=== PATIENT | male | born 1950 | race Caucasian/White ===

== ENCOUNTER 2023-02-25 20:29 | Emergency (ER) | payer OTHER ==
[~2023-02-25] VITALS: Ht 172.7 cm; Wt 78.0 kg
== END 2023-02-25 22:30 | disposition home or self-care (01) ==
LOC: ER 20:29
DX: R07.81 Pleurodynia (principal); S50.811A Abrasion of right forearm, initial encounter; W17.81XA Fall down embankment (hill), initial encounter
CPT/HCPCS: 71101

== ENCOUNTER 2025-09-22 09:02 | Day surgery (SDC) | payer OTHER ==
[2025-09-22] VITALS (13 sets, daily range): BP systolic 98–150; BP diastolic 51–71
[~2025-09-22] VITALS: Ht 170.2 cm; Wt 81.4 kg
[~2025-09-22 09:02] MED LIST: Celexa20 MG PO; Crestor40 MG PO; LISI20 PO; PIOG15 PO; PROP10 PO; SITA100T2 PO; SYNJARDY 12.5-1 EAC3 PO; VITAMIN D31250 MC2 PO
[2025-09-22] MEDS ORDERED: Ropivacaine 0.5% HCl/Pf 123.125 MG,EPINEPHrine HCL 0.25 MG,Ketorolac Tromethamine 15 MG... INFIL SCH (09:40)
[2025-09-22] MEDS ORDERED: Chlorhexidine Mouth Care 15 ML UDC MT SCH (09:40)
[2025-09-22] MEDS ORDERED: Tranexamic Acid 100 ML IV SCH (09:40)
[2025-09-22] MEDS ORDERED: CeFAZolin Sodium 2,000 MG in NS 100 ML IV SCH ×2 (09:40→21:00)
--- NOTE | 2025-09-22 10:52 | NUR ---
Ambulatory in Day Surgery. Pre-Op teaching done. Pt verbalizes understanding. History, Chart, Medications and Allergies reviewed before start of procedure. Patient States Post-Procedure ride home has been arranged. Patient confirms NPO status and agrees with scheduled surgery.
[2025-09-22] MEDS ORDERED: FentaNYL Citrate 50 MCG/ML 2 ML Injection IV PRN ×2 (11:05→11:10)
[2025-09-22] MEDS ORDERED: ePHEDrine Sulfate 50 MG/ML 1ML Injection IV PRN (11:05)
[2025-09-22] MEDS ORDERED: HydrALAZINE HCl 20 MG / ML 1ML Vial IV PRN (11:10)
[2025-09-22] MEDS ORDERED: HYDROmorphone HCl/Pf 1MG SYR IV PRN ×3 (11:10→12:30)
[2025-09-22] MEDS ORDERED: Ondansetron HCl 2 MG / ML 2ML Vial IV PRN ×2 (11:10→12:25)
[2025-09-22] MEDS ORDERED: Midazolam HCl 1MG / ML 2ML Vial ONE (11:57)
[2025-09-22] MEDS ORDERED: FentaNYL Citrate 50 MCG/ML 2 ML Injection ONE (11:57)
[2025-09-22] MEDS ORDERED: Metoclopramide HCl 5MG / ML 2ML Vial IV PRN (12:25)
[2025-09-22] MEDS ORDERED: FLU VACC TS2025(65UP)/MF59C/PF 45 MCG/0.5 ML SYRINGE IM SCH (12:30)
[2025-09-22] MEDS ORDERED: Magnesium Hydroxide Conc 10 ML UDC PO PRN (12:35)
[2025-09-22] MEDS ORDERED: Ondansetron HCl 2 MG / ML 2ML Vial ONE (13:21)
[2025-09-22] MEDS ORDERED: Dexamethasone Sod Phos 10 MG/ML 1ML VIAL ONE (13:21)
[2025-09-22] MEDS ORDERED: ASPI81CH PO (16:29)
[2025-09-22] MEDS ORDERED: ACET500 PO (16:29)
[2025-09-22] MEDS ORDERED: Insulin Regular 100 UNIT/ML 10ML Vial SC SCH (16:30)
[2025-09-22] MEDS ORDERED: JARDIANCE25 MG PO (16:31)
[2025-09-22] MEDS ORDERED: DOCU100 PO (16:31)
[2025-09-22] MEDS ORDERED: OXAYDO5 M3 PO (16:32)
[2025-09-22] MEDS ORDERED: Ketorolac Tromethamine 15mg Vial IV SCH (18:00)
--- NOTE | 2025-09-22 18:25 | NUR ---
SHIFT SUMMARY PT HAS YET TO VOID. BLADDER SCANNED WITH MORE THAN 728 CC AND PT REFUSED THE RECOMMENDED STRAIGHT CATH. PT STATES "I HAVE A VERY LARGE BLADDER AND WOULD LIKE TO GIVE IT MORE TIME". PT AMBULATING THE HALLWAYS WITH STAFF NOW. BLOOD SUGAR TREATED ORDERED. PT STATES MINIMAL PAIN SINCE PROCEDURE. CURRENTLY DENIES KNEE PAIN. VS REVIEWED. FAMILY AT BEDSIDE.
[2025-09-22] MEDS ORDERED: Lidocaine 2% Jelly Uro-Jet UR PRN (20:15)
--- NOTE | 2025-09-23 04:33 | NUR ---
SHIFT SUMMARY PT WAS ALERT AND FULLY ORIENTED ON ASSESSMENT. CIRCULATION/ SENSATION INTACT TO BLE. PAIN WELL MANAGED. DENIES SOB, CHEST PAIN, NAUSEA. INCISION DRESSING C/D/I. PT AMBULATING WELL. PT RETAINING URINE AT START OF SHIFT. BLADDER SCANS REVEALING OVER 1000ML. PT INITIALLY REFUSING CATHETER. PT ABLE TO VOID SEVERAL TIMES TOTALLING OVER 800 ML, BUT UNFORTUNATELY D/T CONTINUED URINE PRODUCTION SECONDARY TO EXCESSIVE PO FLUID INTAKE HIS RETAINED VOLUME REMAINED OVER 1000ML. PT DID EVENTUALLY AGREE TO STRAIGHT CATHETER. 1175ML REMOVED, 344 REMAINED IN FOLLOW UP BLADDER SCAN. PT STATES THAT D/T CAREER HE FEELS HE MAY HAVE A STRETCHED BLADDER FROM FREQUENTLY HOLDING URINE FOR PROLONGED PERIODS. NO OTHER EVENTS OR CHANGES THIS SHIFT.
[2025-09-23 04:34] VITALS: BP 144/63
[2025-09-23 04:46] LABS: BASOPHILS ABSOLUTE AUTO 0.01 K/mm3 (0.00-0.23); BASOPHILS PERCENT AUTO 0 % (0-2); EOSINOPHILS ABSOLUTE AUTO 0.00 K/mm3 (0.00-0.68); EOSINOPHILS PERCENT AUTO 0 % (0-6); Hematocrit 32.0 % (37.0-53.0); Hemoglobin 10.5 g/dL (13.5-17.5); IMMATURE GRAN ABSOLUTE AUTO 0.04 K/mm3 (0.00-0.10); IMMATURE GRAN PERCENT AUTO 0 % (0-1); LYMPHOCYTES ABSOLUTE AUTO 0.92 K/mm3 (0.84-5.20); LYMPHOCYTES PERCENT AUTO 8 % (21-46); MONOCYTES ABSOLUTE AUTO 0.53 K/mm3 (0.16-1.47); MONOCYTES PERCENT AUTO 5 % (4-13); Mean Corpuscular HGB Conc 32.8 g/dL (31.5-36.5); Mean Corpuscular Volume 101 fL (80-100); NEUTROPHILS ABSOLUTE AUTO 10.36 K/mm3 (1.96-9.15); NEUTROPHILS PERCENT AUTO 87 % (41-73); NRBC ABSOLUTE 0.00 K/mm3 (0.00-0.02); NRBC Auto 0.0 /100 WBC (0.0-0.2); Platelet Count 155 K/mm3 (150-400); RDW Coefficient Variation 13.4 % (11.7-14.2); RDW Standard Deviation 50.2 fL (35.1-46.3)
[2025-09-23 05:12] LABS: Anion Gap 10.0 mmol/L (3-11); Blood Urea Nitrogen 17.0 mg/dL (8-24); CO2, Blood 22.0 mmol/L (21-32); Calcium, Blood 8.3 mg/dL (8.5-10.1); Chloride, Blood 107.0 mmol/L (98-108); Creatinine, Blood 1.21 mg/dL (0.60-1.20); Glucose, Blood 214.0 mg/dL (70-99); Magnesium, Blood 2.0 mg/dL (1.6-2.4); Potassium, Blood 4.1 mmol/L (3.5-5.5); Sodium, Blood 135.0 mmol/L (136-145)
[2025-09-23 06:58] VITALS: BP 146/59
[2025-09-23] MEDS ORDERED: MetFORMIN HCl 500 mg PO SCH (08:00)
[2025-09-23] MEDS ORDERED: Saxagliptin HCl 2.5 MG TABLET PO SCH (09:00)
== END 2025-09-23 10:05 | disposition home or self-care (01) ==
LOC: ORSCMMR 09:02 → ORD 10:30 → SURS 15:13 → ORSCMMR 09-23 10:05
PROVIDERS: Orthopaedic Surgery
PROC: 8E0Y0CZ Robotic Assisted Procedure of Lower Extremity, Open Approach (ICD-10-PCS; principal; 2025-09-22 12:30)
PROC: 0SRD0JA Replacement of Left Knee Joint with Synthetic Substitute, Uncemented, Open Approach (ICD-10-PCS; principal; 2025-09-22 12:30)
DX: M17.12 Unilateral primary osteoarthritis, left knee (principal); I10 Essential (primary) hypertension; E78.5 Hyperlipidemia, unspecified; Z87.891 Personal history of nicotine dependence; E11.9 Type 2 diabetes mellitus without complications; Z79.84 Long term (current) use of oral hypoglycemic drugs; Z79.899 Other long term (current) drug therapy
CPT/HCPCS: 27447; 0055T; 36415; 73560-LT; 80048; 82947; 83735; 85025; 97110; 97116; 97161; 97530; A9270; C1713; C1776; J0166; J0690; J0735; J1100; J1815; J1885; J2250; J2405; J2704; J2795; J3010; J7120